=== PATIENT | female | born 2000 | race African-American/Black ===

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

== ENCOUNTER 2020-07-27 09:07 | Emergency (ER) | payer BC ==
[2020-07-27 09:20] VITALS: BP 113/73; PULSE 98; TEMP 98.4; BMI 17.7
[2020-07-27] MEDS ORDERED: SODIUM CHLORIDE 1,000 ML IV STA (10:01)
[2020-07-27 10:22] LABS: BASO % 0.6 % (0-2.0); HEMATOCRIT 35.9 % (32.4-45.2); HEMOGLOBIN 11.7 GM/dL (10.7-15.3); LYMPH % 32.9 % (8-40); MCH 27.7 pg (25.7-33.7); MCHC 32.5 g/dl (32.0-36.0); MEAN CELL VOLUME 85.2 fl (80-96); MEAN PLT VOLUME 8.5 fl (7.5-11.1); MONO % 12.6 % (3.8-10.2); NEUT % 52.9 % (42.8-82.8); PLATELET COUNT 218 K/MM3 (134-434); RBC 4.21 M/mm3 (3.60-5.2); RDW 13.8 % (11.6-15.6); WHITE BLOOD COUNT 5.1 K/mm3 (4.0-10.0)
--- NOTE | 2020-07-27 10:23 | PDOC ---
History of Present Illness - General History Source: Patient Exam Limitations: No Limitations <Beti Solis - Last Filed: 07/27/20 13:07> <Kristy Burciaga - Last Filed: 07/28/20 09:48> - General Chief Complaint: Vaginal Bleeding Stated Complaint: VAGINAL BLEEDING Time Seen by Provider: 07/27/20 09:29 Past History - Travel History Traveled outside of the country in the last 30 days: No Close contact w/someone who was outside of country & ill: No - Medical History Anemia: No Asthma: No Cancer: No Cardiac Disorders: No CVA: No COPD: No CHF: No Dementia: No Diabetes: No GI Disorders: No Disorders: No HTN: No Hypercholesterolemia: No Liver Disease: No Seizures: No Thyroid Disease: No - Surgical History Abdominal Surgery: Yes (Lap Hernia Repair) Appendectomy: No Cardiac Surgery: No Cholecystectomy: No Lung Surgery: No Neurologic Surgery: No Orthopedic Surgery: No - Reproductive History Is Patient Now?: Yes (#): 1 Para: 0 - Immunization History Immunization Up to Date: Yes - Psycho-Social/Smoking History Smoking Status: No Smoking History: Never smoked Have you smoked in the past 12 months: No Number of Cigarettes Smoked Daily: 0 - Substance Abuse Hx (Audit-C & DAST Scrn) How often the patient has a drink containing alcohol: Never Score: In Men: 4 or > Positive; In Women: 3 or > Positive: 0 Screen Result (Pos requires Nsg. Audit-10AR): Negative In the last yr the pt used illegal drug/Rx for NonMed reason: No Score: Yes response is considered Positive: 0 Screen Result (Positive result requires Nsg. DAST-10): Negative <Beti Solis - Last Filed: 07/27/20 13:07> <Kristy Burciaga - Last Filed: 07/28/20 09:48> - Medical History Allergies/Adverse Reactions: Allergies Allergy/AdvReac Type Severity Reaction Status Date / Time No Known Allergies Allergy Verified 07/27/20 09:15 Home Medications: Ambulatory Orders Cephalexin Monohydrate [Keflex -] 500 mg PO BID #14 capsule 07/27/20 Review of Systems - Review of Systems Able to Perform ROS?: Yes Comments:: 07/27/20 10:17 CONSTITUTIONAL: Absent: fever, chills, diaphoresis, generalized weakness, malaise, loss of appetite HEENT: Absent: rhinorrhea, nasal congestion, throat pain, throat swelling, difficulty swallowing, mouth swelling, ear pain, eye pain, visual Changes CARDIOVASCULAR: Absent: chest pain, loss of consciousness, palpitations, irregular heart rate, peripheral edema RESPIRATORY: Absent: cough, shortness of breath, dyspnea with exertion, orthopnea, wheezing, stridor, hemoptysis GASTROINTESTINAL: Absent: abdominal pain, abdominal distension, nausea, vomiting, diarrhea, constipation, melena, hematochezia GENITOURINARY: Present: Vaginal bleeding in Absent: dysuria, frequency, urgency, hesitancy, hematuria, flank pain, genital pain MUSCULOSKELETAL: Absent: myalgia, arthralgia, joint swelling SKIN: Absent: rash, itching, pallor HEMATOLOGIC/IMMUNOLOGIC: Absent: easy bleeding, easy bruising, lymphadenopathy, frequent infections ENDOCRINE: Absent: unexplained weight gain, unexplained weight loss, heat intolerance, cold intolerance NEUROLOGIC: Absent: headache, focal weakness or paresthesias, dizziness, unsteady gait, seizure, mental status changes, bladder or bowel incontinence PSYCHIATRIC: Absent: anxiety, depression, suicidal or homicidal ideation, hallucinations. Is the patient limited Pakistani proficient: No <Beti Solis - Last Filed: 07/27/20 13:07> *Physical Exam - Vital Signs Last Vital Signs Temp Pulse Resp BP Pulse Ox 98.4 F 98 H 18 113/73 100 07/27/20 09:15 07/27/20 09:15 07/27/20 09:15 07/27/20 09:15 07/27/20 09:15 - Physical Exam 07/27/20 10:21 GENERAL: Well developed, well nourished. Awake and alert. No acute distress. HEENT: Normocephalic, atraumatic. PERRLA, EOMI. No conjunctival pallor. Sclera are non-icteric. Moist mucous membranes. NECK: Supple. Full ROM. No lymphadenopathy. CARDIOVASCULAR: Regular rate and rhythm. Distal pulses are 2+ and symmetric. PULMONARY: No evidence of respiratory distress. Breathing comfortably on RA ABDOMINAL: Soft. Non-tender. Non-distended. No rebound or guarding. No organomegaly. Normoactive bowel sounds. PELVIC: External genitalia normal without lesions. Vaginal vault is with scant blood under the cervix. Cervix is long and closed. No cervical motion tenderness. Uterus is nontender and normal in size. Adnexa are nontender and without masses. MUSCULOSKELETAL Normal range of motion at all joints. No bony deformities or tenderness. No CVA tenderness. EXTREMITIES: No cyanosis. No clubbing. No edema. No calf tenderness. SKIN: Warm and dry. Normal capillary refill. No rashes. No jaundice. NEUROLOGICAL: Alert, awake, appropriate. Cranial nerves 2-12 intact. No deficits to light touch and temperature in face, upper extremities and lower extremities. No motor deficits in the in face, upper extremities and lower extremities. Normoreflexic in the upper and lower extremities. Normal speech. Toes are down-going bilaterally. Gait is normal without ataxia. PSYCHIATRIC: Cooperative. Good eye contact. Appropriate mood and affect. <Beti Solis - Last Filed: 07/27/20 13:07> - Vital Signs Last Vital Signs Temp Pulse Resp BP Pulse Ox 98.4 F 98 H 18 113/73 100 07/27/20 09:15 07/27/20 09:15 07/27/20 09:15 07/27/20 09:15 07/27/20 09:15 <Kristy Burciaga - Last Filed: 07/28/20 09:48> ED Treatment Course - LABORATORY CBC & Chemistry Diagram: 07/27/20 10:07 07/27/20 10:07 - RADIOLOGY Radiology Studies Ordered: Category Date Time Status US(SINGLE) [US] Stat Ultrasound 07/27/20 10:01 Ordered <Beti Solis - Last Filed: 07/27/20 13:07> - LABORATORY CBC & Chemistry Diagram: 07/27/20 10:07 07/27/20 10:07 - ADDITIONAL ORDERS Additional order review: 07/27/20 10:07 Urine Culture - Final Urine - Urine Clean Catch Normal Urogenital Doris 07/27/20 10:07 RBC 4.21 MCV 85.2 MCHC 32.5 RDW 13.8 MPV 8.5 Neutrophils % 52.9 D Lymphocytes % 32.9 D Monocytes % 12.6 H Eosinophils % 1.0 Basophils % 0.6 - Medications Given in the ED: ED Medications Discontinued Medications Generic Name Dose Route Start Last Admin Trade Name Freq PRN Reason Stop Dose Admin Sodium Chloride 1,000 mls @ 1,000 mls/hr 07/27/20 10:01 07/27/20 10:27 Normal Saline - IV 07/27/20 11:00 1,000 mls/hr ASDIR STA Administration <Kristy Burciaga - Last Filed: 07/28/20 09:48> Medical Decision Making - Medical Decision Making 07/27/20 10:24 Patient is a 20-year-old female, , states she is 15 weeks , presents to the ER for vaginal bleeding starting this morning. She states she went to use the bathroom and noticed bright red blood in the toilet bowl. She states that up until now her has been uneventful. She has seen PROCESS DEVELOPMENT ASSOCIATE for this with a confirmed IUP. Denies any urinary symptoms, back pain, nausea and vomiting. Denies trauma, recent intercourse. She states she is unsure of her last menstrual cycle as she was on the Depakote shot prior to getting . A/P: Vaginal bleeding in second trimester On exam patient had scant blood inferior to the cervix. The cervix was long and closed. No blood clots noted at this time. Abdomen soft nontender without rebound guarding or tenderness. No CVA tenderness. We will obtain basic labs, ultrasound, urine to further evaluate . 07/27/20 12:33 12 weeks along per US. Viable IUP HR 165 RH + Positive UTI We will treat with Keflex Discharged have patient follow-up with her SENIOR STATISTICAL PROGRAMMER this afternoon I discussed the physical exam findings, ancillary test results and final diagnoses with the patient. I answered all of the patient's questions. The patient was satisfied with the care received and felt comfortable with the discharge plan and treatment plan. The Patient agrees to follow up with the primary care physician/specialist within 24-72 hours. Return precautions were given. 07/27/20 13:08 <Beti Solis - Last Filed: 07/27/20 13:07> - Medical Decision Making I reviewed the case with the mid-level practitioner and agree with the mid-level practitioner's assessment, diagnosis and disposition. <Kristy Burciaga - Last Filed: 07/28/20 09:48> Discharge - Discharge Information Problems reviewed: Yes - Admission No <Beti Solis - Last Filed: 07/27/20 13:07> <Kristy Burciaga - Last Filed: 07/28/20 09:48> - Discharge Information Clinical Impression/Diagnosis: Vaginal bleeding during UTI (urinary tract infection) Qualifiers: Urinary tract infection type: acute cystitis Hematuria presence: with hematuria Qualified Code(s): N30.01 - Acute cystitis with hematuria Condition: Stable Disposition: HOME - Additional Discharge Information Prescriptions: Cephalexin Monohydrate [Keflex -] 500 mg PO BID #14 capsule - Follow up/Referral Referrals: Patience Pratt MD [Primary Care Provider] - - Patient Discharge Instructions Patient Printed Discharge Instructions: DI for Urinary Tract Infection (UTI), DI for Vaginal Bleeding During Additional Instructions: You were seen for your vaginal bleeding and today. Your ultrasound showed a single intrauterine with a heart rate of 165 today. Your urine did show evidence of infection. Please take the Keflex as directed for 1 week. Please follow-up with your OB as scheduled today. Return to the ER for increased bleeding, vomiting, abdominal pain, or if you have any changes in your symptoms. - Post Discharge Activity
[2020-07-27 10:51] LABS: URINE APPEARANCE Clear; URINE BILIRUBIN 2+ (NEGATIVE); URINE COLOR Yellow; URINE GLUCOSE (UA) Negative (NEGATIVE); URINE KETONE 1+ (NEGATIVE); URINE LEUK ESTERASE 3+ (NEGATIVE); URINE NITRITE Negative (NEGATIVE); URINE PROTEIN 3+ (NEGATIVE); URINE UROBILINOGEN 0.2 mg/dL (0.2-1.0)
[2020-07-27 10:56] LABS: ALBUMIN 4.1 g/dl (3.4-5.0); BILIRUBIN,TOTAL 0.4 mg/dL (0.2-1); BLOOD UREA NITROGEN 6.9 mg/dL (7-18); CALCIUM 8.9 mg/dL (8.5-10.1); CREATININE 0.7 mg/dL (0.55-1.3); POTASSIUM 3.9 mmol/L (3.5-5.1); TOT PROT 8.1 g/dl (6.4-8.2)
== END 2020-07-27 13:05 | disposition home or self-care (01) ==
LOC: JER 09:07
PROC: 3E0337Z Introduction of Electrolytic and Water Balance Substance into Peripheral Vein, Percutaneous Approach (ICD-10-PCS; principal; 2020-07-27)
DX: N30.01 Acute cystitis with hematuria (principal)
CPT/HCPCS: 36415; 76801-TC; 80053; 81003; 84702; 85025; 86850; 86900; 86901; 87086; 99284-25

== ENCOUNTER 2023-05-05 11:32 | Emergency (ER) | payer SELFPAY ==
[2023-05-05 11:40] VITALS: BP 142/82; PULSE 98; RESP 16; TEMP 98.1; BMI 17.7
[2023-05-05] MEDS ORDERED: ACETAMINOPHEN 500 MG TABLET (FP) PO ONE (12:12)
[2023-05-05] MEDS ORDERED: IBUPROFEN 600 MG TABLET (FP) PO ONE ×2 (12:12→12:35)
[2023-05-05] MEDS ORDERED: ACETAMINOPHEN 325 MG TABLET (FP) ONE (12:35)
== END 2023-05-05 14:20 | disposition home or self-care (01) ==
LOC: JER 11:32
DX: R07.9 Chest pain, unspecified (principal)
CPT/HCPCS: 93005; 93010; 99283-25

== ENCOUNTER 2023-12-07 08:42 | Emergency (ER) | payer OTHER ==
[2023-12-07 08:56] VITALS: BP 130/71; PULSE 81; RESP 18; BMI 17.7
[2023-12-07 08:58] VITALS: TEMP 97.8
[2023-12-07] MEDS ORDERED: KETOROLAC TROMETHAMINE 30 MG/1 ML VIAL ONE (10:24)
[2023-12-07] MEDS: KETOROLAC TROMETHAMINE 30 MG/1 ML VIAL IM ONE (10:29)
== END 2023-12-07 10:33 | disposition home or self-care (01) ==
LOC: JERFT 08:42 → JER 08:42 → JERFT 10:33
PROC: 3E0233Z Introduction of Anti-inflammatory into Muscle, Percutaneous Approach (ICD-10-PCS; principal; 2023-12-07)
DX: M25.561 Pain in right knee (principal)
CPT/HCPCS: 99284-25